=== PATIENT | female | born 1950 | race Caucasian/White ===

== ENCOUNTER → 2019-10-23 | Outpatient (CLI) | payer MEDICARE, MEDICAID ==
[~2019-10-23] MED LIST: ALPR0.25 PO; ASCO-96 PO; ASPI-496 PO; D-Mannose PO; FAMO20TA7 PO; FLUO20TA25 PO; LEVE500T53 PO; LEVO75TA5 PO; MULT-717 PO; calcium PO; cranberry PO; tylenol #4 PO
== END | disposition home or self-care (01) ==
LOC: STAR 10:52
PROVIDERS: ATTEND Orthopaedic Surgery
DX: Z01.818 Encounter for other preprocedural examination (principal); M19.011 Primary osteoarthritis, right shoulder
CPT/HCPCS: 87081; 93005

== ENCOUNTER 2019-11-09 07:44 | Inpatient (IN) | payer MEDICARE, MEDICAID ==
[~2019-11-09] VITALS: Ht 152.4 cm; Wt 52.0 kg
[~2019-11-09 07:44] MED LIST changes: +BUPIVACAINE LIPOSOME/PF 10ML INFIL ONE; +CLINDAMYCIN 150 MG/ML, 6ML ONE
[2019-11-09] MEDS ORDERED: FENTANYL PF 100 MCG/2ML ONE ×3 (08:08→12:37)
[2019-11-09] MEDS ORDERED: MIDAZOLAM 1 MG/ML, 2ML ONE (08:08)
[2019-11-09 08:14] VITALS: BP 155/79
[2019-11-09] MEDS ORDERED: LIDOCAINE-MPF 2% ,5ML ONE (08:16)
[2019-11-09] MEDS ORDERED: CHLORHEXIDINE 15 ML UDC ONE (08:18)
[2019-11-09] MEDS ORDERED: CHLORHEXIDINE 15 ML UDC MM ONE (08:30)
[2019-11-09] MEDS ORDERED: LACTATED RINGERS 1,000 ML IV SCH (09:00)
[2019-11-09] MEDS ORDERED: LORazepam 2 MG/ML, 1ML IVPush PRN (09:30)
[2019-11-09] MEDS ORDERED: ACETAMINOPHEN 325 MG TABLET PO PRN (09:30)
[2019-11-09] MEDS ORDERED: ALBUTEROL SULFATE 2.5 MG/3 ML NPPB PRN (09:30)
[2019-11-09] MEDS ORDERED: HYDROmorphone 1 MG/ML, 1ML INJ IVPush PRN (09:30)
[2019-11-09] MEDS ORDERED: OXYcodone 5 MG/5 ML ORAL.SOL UDC PO PRN ×2 (09:30→14:30)
[2019-11-09] MEDS ORDERED: LABETALOL 5MG/ML, 20ML IV PRN (09:30)
[2019-11-09] MEDS ORDERED: PROMETHAZINE 25 MG/ML, 1ML IVPush PRN (09:30)
[2019-11-09] MEDS ORDERED: hydrALAzine 20 MG/ML, 1ML IV PRN (09:30)
[2019-11-09] MEDS ORDERED: MEPERIDINE/PF 25MG/0.5ML IVPush PRN (09:30)
[2019-11-09] MEDS ORDERED: ROCURONIUM 10MG/ML,5ML ONE (10:29)
[2019-11-09] MEDS ORDERED: NEOSTIGMINE 1 MG/ML, 10ML ONE (10:29)
[2019-11-09] MEDS ORDERED: CEFAZOLIN 1,000 MG ONE (10:29)
[2019-11-09] MEDS ORDERED: GLYCOPYRROLATE 0.2MG/1ML, 5ML ONE (10:29)
[2019-11-09] MEDS ORDERED: DEXAMETHASONE 4 MG/ML, 1ML ONE (10:29)
[2019-11-09] MEDS ORDERED: PROPOFOL 10 MG/ML, 20ML ONE (10:29)
[2019-11-09] MEDS ORDERED: ONDANSETRON 2MG/ML, 2ML ONE (10:29)
[2019-11-09] MEDS ORDERED: OXYcodone 5 MG/5 ML ORAL.SOL UDC ONE ×2 (11:51→12:37)
[2019-11-09] MEDS: FENTANYL PF 100 MCG/2ML IV PRN ×3 (12:00→12:40)
[2019-11-09 13:56] VITALS: BP 138/74
[2019-11-09] MEDS ORDERED: morphine SULFATE 10 MG/ML, 1ML IV PRN (14:30)
[2019-11-09] MEDS ORDERED: ONDANSETRON 2MG/ML, 2ML IV PRN (14:30)
[2019-11-09] MEDS ORDERED: HYDROcodone/APAP 5/325 TABLET PO PRN (14:30)
[2019-11-09] MEDS ORDERED: KETOROLAC 30 MG/1 ML IV SCH (15:00)
[2019-11-09] MEDS ORDERED: MAGNESIUM HYDROXIDE 8%, 30ML UDC PO PRN (15:00)
[2019-11-09] MEDS ORDERED: SODIUM CHLORIDE FLUSH 10ML SYR IVF SCH (21:00)
[2019-11-09] MEDS ORDERED: DOCUSATE 100 MG CAPSULE PO SCH (21:00)
== END 2019-11-09 20:00 | disposition home or self-care (01) | DRG 483 ==
LOC: ORIP 07:44 → INTOOBSV 07:44 → OBSVTOIN 08:10 → 4NE 13:52
PROVIDERS: ADMIT Orthopaedic Surgery; ATTEND Orthopaedic Surgery
PROC: 3E0T3BZ Introduction of Anesthetic Agent into Peripheral Nerves and Plexi, Percutaneous Approach (ICD-10-PCS; 2019-11-09)
PROC: 0RRJ00Z Replacement of Right Shoulder Joint with Reverse Ball and Socket Synthetic Substitute, Open Approach (ICD-10-PCS; principal; 2019-11-09 10:45)
DX: M12.811 Other specific arthropathies, not elsewhere classified, right shoulder (principal); M75.21 Bicipital tendinitis, right shoulder; Z88.2 Allergy status to sulfonamides; Z88.8 Allergy status to other drugs, medicaments and biological substances
CPT/HCPCS: 36415; 87635; 96374; C1713; C1776; G0378; J0690; J1100; J1885; J2250; J2405; J2704; J2710; J3010; C1769; J7120